=== PATIENT | female | born 1945 | race African-American/Black ===

== ENCOUNTER → 2017-06-08 | Outpatient (CLI) | payer BC, MEDICARE ==
[~2017-06-08] VITALS: Ht 165.1 cm; Wt 98.0 kg
[~2017-06-08] MED LIST: AMLO5TAB4 PO; B12/1TAB PO; FAMO-63 PO; GABA-585 PO; HYDR12.58 PO; LIDOCAINE 1% / SOD BICARB 8.4% 20 ML VIAL. IJ ONE; LISI40TA PO; LORA10TA68 PO; METF850T2 PO; PRAV20TA2 PO
[2017-06-08 08:54] LABS: BASO % 1 % (0-3); EOS % 2 % (0-3); HEMATOCRIT 50.5 % (36.0-47.0); HEMOGLOBIN 16.8 g/dL (12.0-15.5); LYMPH # 1.7 x10^3/uL (1.0-4.8); LYMPH % 29 % (24-48); MEAN CORPUSCULAR HEMOGLOBIN 29 pg (25-35); MEAN CORPUSCULAR HGB CONC 33 g/dL (31-37); MEAN CORPUSCULAR VOLUME 87 fL (79-100); MONO % 10 % (0-9); NEUT % 58 % (31-73); PLATELET COUNT 207 x10^3/uL (140-400); RED BLOOD COUNT 5.82 x10^6/uL (3.50-5.40); WHITE BLOOD COUNT 5.7 x10^3/uL (4.0-11.0)
[2017-06-08 09:01] VITALS: BP 140/69
[2017-06-08 09:02] LABS: PROTHROMBIN TIME PATIENT 12.3 SEC (11.7-14.0)
[2017-06-08 10:27] VITALS: BP 145/80
--- NOTE | 2017-06-09 08:08 | RAD ---
Ultrasound-guided biopsy of right parotid mass 06/09/2017 Discussion: The risks and benefits of the procedure were discussed the patient. Informed consent was obtained. The patient was brought to the interventional suite placed supine position. A timeout procedure was performed. Ultrasound evaluation demonstrates a 2.5 cm mass arising from appears to be the inferior right parotid gland. The right face was prepped and draped using maximal sterile barrier technique. 1% lidocaine without epinephrine was administered for local anesthesia. Under direct ultrasound guidance findings laceration and 20-gauge core biopsy samples were obtained. Manual pressure was held. Repeat ultrasound demonstrated no hematoma or other complications. Patient tolerated the procedure well. Impression: Successful ultrasound-guided biopsy of right parotid mass
--- NOTE | 2017-06-09 15:56 | PATHOLOGY ---
CYTOPATHOLOGY REPORT CLINICAL HISTORY: Right parotid mass. See also [id number]. SPECIMEN(S) RECEIVED: A.Fine needle aspiration, Right parotid mass FINAL DIAGNOSIS: Fine needle aspiration, right parotid mass: - Myxoid cartilaginous tissue with rare myoepithelial cells. See comment. (SHA:adrianna; 06/09/2017) COMMENT: The specimen is very poorly cellular and consists of myxoid cartilaginous material. 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 Correlate with surgical biopsy [id number]. PATHOLOGIST: Eleno Das M.D. REPORT ELECTRONICALLY SIGNED BY: Eleno Das M.D. DATE/TIME: 06/09/2017 15:56 GROSS PATHOLOGY: A. Fine needle aspiration, Right parotid mass: The specimen is labeled "Conchita Bailey" and consists of one H and E slide, one fixed slide. Thirty mL of clear colorless fluid in fixative from the needle rinse is also submitted and one ThinPrep slide and a alcohol fixed cell block were prepared from this material. (clt 06.08.2017) MICROBIOLOGICAL ANALYST(S): BUBBA Solis([facility]) INITIAL CPT CODE(S): A; 42076, 06983 Professional services performed [place] [facility] [address] Technical services performed by [facility] at [address] [place] [address], [address], [place] [address]. PATIENT: CONCHITA BAILEY /AGE: 210/15/1945 (Age: 71) SEX: F PATIENT #: [id number] ALT CASE #: SPECIMEN COLLECTION DATE: 06/08/2017 SPECIMEN RECEIVED DATE: 06/08/[address] [facility] [address] [place] [address], [address] [place] [address] PHONE: [phone] DIRECTOR: Chuy Fernandes M.D. * * * END OF REPORT * * *
--- NOTE | 2017-06-09 16:08 | PATHOLOGY ---
PATHOLOGY REPORT * * * * * * * * FINAL DIAGNOSIS: Parotid "right parotid mass": - Myxoid cartilaginous tissue. - See comment. (SHA:pit; 06/09/2017) COMMENT: Myxoid cartilaginous tissue is seen most likely in patients with pleomorphic adenoma. The biopsies consist entirely of myxoid cartilaginous tissue without any epithelial elements identified. Suggest clinical correlation and follow up as clinically indicated. This case is also reviewed by Dr. Rosie Acuña. (SHA:pit; 06/09/2017) REPORT ELECTRONICALLY SIGNED BY: Eleno Das M.D. DATE/TIME: 06/09/2017 16:08 * * * * * * * * GROSS PATHOLOGY: Received in formalin labeled "Conchita Bailey," and additionally labeled on the requisition as "core BX 2 right parotid," are 3 distinct needle cores of palomino soft tissue ranging from 0.3 to 0.6 cm in length, which are submitted entirely in cassette A1 through A3. (TSD; 06/08/2017) INITIAL CPT CODE(S): A; 66880 Professional services performed by [facility] [place] [address] Technical services performed by [facility] at [address] [place] [address]. SPECIMEN(S) RECEIVED: A.Right parotid mass CLINICAL HISTORY: Right parotid mass PATIENT: CONCHITA BAILEY /AGE: 210/15/1945 (Age: 71) PATIENT #: [id number] ALT CASE #: [id number] SPECIMEN COLLECTION DATE: 06/08/2017 SPECIMEN RECEIVED DATE: 06/08/2017 [facility] - [address] [place] [address] - PHONE: [phone] * * * END OF REPORT * * *
== END | disposition home or self-care (01) ==
LOC: INTRAD 08:08
PROVIDERS: ATTEND Otolaryngology
DX: K11.9 Disease of salivary gland, unspecified (principal); I10 Essential (primary) hypertension; M19.91 Primary osteoarthritis, unspecified site; E11.9 Type 2 diabetes mellitus without complications; F17.200 Nicotine dependence, unspecified, uncomplicated; Z72.0 Tobacco use; Z87.39 Personal history of other diseases of the musculoskeletal system and connective tissue; Z86.39 Personal history of other endocrine, nutritional and metabolic disease; Z88.6 Allergy status to analgesic agent; Z88.0 Allergy status to penicillin; Z88.8 Allergy status to other drugs, medicaments and biological substances
CPT/HCPCS: 36415; 42400; 76942; 85025; 85610; 88173; 88305; 99406

== ENCOUNTER → 2017-12-27 | Outpatient (CLI) | payer OTHER, BC | END | disposition home or self-care (01) | LOC: RT 07:55 | DX: R41.3 Other amnesia (principal); I10 Essential (primary) hypertension; E11.9 Type 2 diabetes mellitus without complications; E78.00 Pure hypercholesterolemia, unspecified; E03.9 Hypothyroidism, unspecified; Z87.891 Personal history of nicotine dependence | CPT/HCPCS: 95816 ==

== ENCOUNTER → 2017-12-28 | Outpatient (CLI) | payer OTHER | END | disposition home or self-care (01) | LOC: MRI 14:42 | DX: H57.11 Ocular pain, right eye (principal); H53.9 Unspecified visual disturbance; R51 Headache | CPT/HCPCS: 70551 ==

== ENCOUNTER → 2018-01-29 | Outpatient (CLI) | payer OTHER | END | disposition home or self-care (01) | LOC: US 08:45 | DX: I63.8 Other cerebral infarction (principal); I25.10 Atherosclerotic heart disease of native coronary artery without angina pectoris | CPT/HCPCS: 93880; C8929 ==